=== PATIENT | female | born 1955 | race Caucasian/White ===

== ENCOUNTER 2020-10-31 19:24 | Inpatient (IN) | payer OTHER ==
[~2020-10-31] VITALS: Ht 160 cm; Wt 56.5 kg
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
--- NOTE | 2020-10-31 19:56 | NUR ---
PT TAKING MEDS: CLONAZEPAM 0.5MG TAB -VENLAFAXINE 75MG CAP.
--- NOTE | 2020-10-31 19:58 | NUR ---
PT ACTIVELY VOMMINT THE LAST 10 MINUTES ASKING "WHY DOES HER HEAD HURT SO MUCH?" HAS HAD A BIANCHI SINCE 1600.
--- NOTE | 2020-10-31 20:14 | NUR ---
PT STATES HAS A BIANCHI 10/10.
[2020-10-31] MEDS ORDERED: MORPHINE SULFATE 4 MG/ML, 1ML IVPush PRN (21:00)
[2020-10-31] MEDS ORDERED: ONDANSETRON 2MG/ML, 2ML IVPush ONE (21:00)
[2020-10-31] MEDS ORDERED: SODIUM CHLORIDE FLUSH 10ML SYR IVF ONE (21:00)
[2020-10-31] MEDS ORDERED: SODIUM CHLORIDE 0.9% 1,000ML IVBOLUS ONE (21:00)
[2020-10-31] MEDS ORDERED: ONDANSETRON 2MG/ML, 2ML ONE (21:05)
[2020-10-31] MEDS ORDERED: MORPHINE SULFATE 4 MG/ML, 1ML ONE (21:05)
--- NOTE | 2020-10-31 21:17 | NUR ---
PT MEDICATED WENT TO CT.
[2020-10-31 21:26] LABS: BASOPHILS % (AUTO) 1 % (0-1); EOSINOPHILS % (AUTO) 2 % (1-7); LYMPHOCYTES % (AUTO) 28 % (22-44); MEAN CORPUSCULAR HEMOGLOBIN 31.5 pg (27.0-34.8); MEAN CORPUSCULAR HGB CONC 33.7 g/dL (32.4-35.8); MEAN PLATELET VOLUME 10.3 fL (7.4-10.4); MONOCYTES % (AUTO) 6 % (2-9); NEUTROPHILS % (AUTO) 63 % (42-75); PLATELET COUNT 171 x10^3/uL (130-400); RED BLOOD COUNT 4.11 x10^6/uL (3.82-5.3); RED CELL DISTRIBUTION WIDTH 13.4 % (9.6-15.2)
[2020-10-31 21:27] LABS: MD NO
[2020-10-31 21:37] LABS: ALANINE AMINOTRANSFERASE 25 U/L (12-78); ALBUMIN 4.2 g/dL (3.4-5.0); ANION GAP 8 mmol/L (5-15); CALCIUM 9.7 mg/dL (8.5-10.1); CHLORIDE 107 mmol/L (98-107); CREATININE 0.76 mg/dL (0.55-1.02)
[2020-10-31 21:41] LABS: ALKALINE PHOSPHATASE 51 U/L (45-117); BILIRUBIN,TOTAL 0.5 mg/dL (0.2-1.0); TOTAL PROTEIN 6.6 g/dL (6.4-8.2); TROPONIN I < 0.015 ng/mL (0.000-0.045)
[2020-10-31 21:48] LABS: INTERNATIONAL NORMALIZED RATIO 1.09 (0.93-1.1); PROTHROMBIN TIME 11.6 Seconds (9.6-11.5)
[2020-10-31] MEDS ORDERED: CLON0.5T20 PO (21:51)
[2020-10-31] MEDS ORDERED: VENL75TA PO (21:51)
--- NOTE | 2020-10-31 22:49 | NUR ---
Assist RN: ERP at bedside for LP.
[2020-10-31 23:10] LABS: GLUCOSE, CSF 68 mg/dL (40-80); TOTAL PROTEIN,CSF 57 mg/dL (15-45)
[2020-10-31] MEDS ORDERED: POTASSIUM CHLORIDE 20 MEQ TAB.ER.PRT ONE (23:21)
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
[2020-10-31] MEDS ORDERED: POTASSIUM CHLORIDE 20 MEQ TAB.ER.PRT PO ONE (23:30)
[2020-10-31 23:34] LABS: MICROSCOPIC AUTO
[2020-11-01] MEDS ORDERED: POLYETHYLENE GLYCOL 17 GM PACKET PO PRN (00:30)
[2020-11-01] MEDS ORDERED: BISACODYL 10 MG SUPP PR PRN (00:30)
--- NOTE | 2020-11-01 00:41 | NUR ---
REPORT GIVEN TO VILMA STANLEY.
[2020-11-01 01:24] LABS: FREE T4 (FREE THYROXINE) 1.2 ng/dL (0.76-1.46)
[2020-11-01] MEDS: SODIUM CHLORIDE 0.9% 1,000 ML IV SCH ×2 (02:18→20:41)
[2020-11-01] MEDS: ACYCLOVIR 500 MG in SODIUM CHLORIDE 0.9% 100 ML IV SCH ×2 (02:18→10:45)
[2020-11-01 02:44] VITALS: BP 123/79
[2020-11-01 06:27] LABS: BASOPHILS % (AUTO) 0 % (0-1); EOSINOPHILS % (AUTO) 0 % (1-7); LYMPHOCYTES % (AUTO) 15 % (22-44); MEAN CORPUSCULAR HEMOGLOBIN 31.6 pg (27.0-34.8); MEAN PLATELET VOLUME 9.9 fL (7.4-10.4); MONOCYTES % (AUTO) 4 % (2-9); NEUTROPHILS % (AUTO) 80 % (42-75); PLATELET COUNT 158 x10^3/uL (130-400); RED BLOOD COUNT 4.15 x10^6/uL (3.82-5.3); RED CELL DISTRIBUTION WIDTH 13.6 % (9.6-15.2)
[2020-11-01 06:34] LABS: ANION GAP 7 mmol/L (5-15); CALCIUM 9.4 mg/dL (8.5-10.1); CHLORIDE 109 mmol/L (98-107); CREATININE 0.67 mg/dL (0.55-1.02)
[2020-11-01 06:39] LABS: MD NO
[2020-11-01 06:53] VITALS: BP 105/60
[2020-11-01] MEDS: VENLAFAXINE 75MG TABLET PO SCH (10:45)
[2020-11-01] MEDS: SENNA/DOCUSATE TABLET PO SCH (10:51)
[2020-11-01 12:01] VITALS: BP 106/62
[2020-11-01] MEDS ORDERED: ACETAMINOPHEN 325 MG TABLET ONE (12:15)
[2020-11-01] MEDS ORDERED: LORazepam 1MG TABLET PO ONE (13:00)
[2020-11-01] MEDS ORDERED: PROMETHAZINE 12.5 MG SUPP PR PRN (17:00)
[2020-11-01 18:31] VITALS: BP 107/60
[2020-11-02 00:06] VITALS: BP 110/73
[2020-11-02] MEDS: ACETAMINOPHEN 325 MG TABLET PO PRN ×2 (05:36→18:04)
[2020-11-02 07:14] VITALS: BP 123/82
[2020-11-02] MEDS: VENLAFAXINE 75MG TABLET PO SCH (07:53)
[2020-11-02] MEDS: SENNA/DOCUSATE TABLET PO SCH (07:53)
[2020-11-02] MEDS ORDERED: GADOTERATE 5 MMOL/10ML SYR ONE (10:27)
[2020-11-02 12:10] VITALS: BP 113/71
[2020-11-02] MEDS: KETOROLAC 30 MG/1 ML IVPush PRN (13:19)
[2020-11-02] MEDS: PROCHLORPERAZINE 5 MG/ML, 2ML IVPush PRN (13:19)
[2020-11-02] MEDS: SODIUM CHLORIDE 0.9% 1,000 ML IV SCH (15:05)
[2020-11-02] MEDS: ONDANSETRON 2MG/ML, 2ML IVPush PRN (18:04)
[2020-11-02 19:26] VITALS: BP 118/78
[2020-11-03 01:03] VITALS: BP 115/76
[2020-11-03] MEDS: PROCHLORPERAZINE 5 MG/ML, 2ML IVPush PRN ×2 (03:16→14:23)
[2020-11-03] MEDS: SODIUM CHLORIDE 0.9% 1,000 ML IV SCH ×2 (03:16→17:19)
[2020-11-03] MEDS: KETOROLAC 30 MG/1 ML IVPush PRN ×2 (03:16→14:23)
[2020-11-03 06:52] VITALS: BP 132/80
[2020-11-03] MEDS ORDERED: VENLAFAXINE 37.5MG TABLET PO ONE (08:00)
[2020-11-03] MEDS ORDERED: VENLAFAXINE 75MG TABLET ONE (09:37)
[2020-11-03 12:03] VITALS: BP 134/77
[2020-11-03] MEDS: SENNA/DOCUSATE TABLET PO SCH (16:48)
[2020-11-03] MEDS: ACETAMINOPHEN 325 MG TABLET PO PRN (19:25)
[2020-11-03 20:14] VITALS: BP 132/76
[2020-11-04 00:02] VITALS: BP 123/69
[2020-11-04] MEDS: SODIUM CHLORIDE 0.9% 1,000 ML IV SCH (06:17)
[2020-11-04] MEDS: KETOROLAC 30 MG/1 ML IVPush PRN ×2 (06:30→19:11)
[2020-11-04] MEDS: PROCHLORPERAZINE 5 MG/ML, 2ML IVPush PRN (06:31)
[2020-11-04 06:57] VITALS: BP 122/71
[2020-11-04] MEDS: ACETAMINOPHEN 325 MG TABLET PO PRN ×2 (09:44→17:37)
[2020-11-04] MEDS: SENNA/DOCUSATE TABLET PO SCH (09:44)
[2020-11-04] MEDS: VENLAFAXINE 37.5MG TABLET PO SCH (09:45)
[2020-11-04] MEDS: ONDANSETRON 2MG/ML, 2ML IVPush PRN (10:35)
[2020-11-04] MEDS ORDERED: VALPROATE SODIUM 500 MG in DEXTROSE 5% 100 ML IV ONE (11:00)
[2020-11-04] MEDS ORDERED: VENL37.57 PO (11:51)
[2020-11-04 12:03] VITALS: BP_SYST 115; BP_SYST 120; BP_SYST 147; BP_DIAS 51; BP_DIAS 71; BP_DIAS 81
[2020-11-04] MEDS: D5%-0.9% NACL 1,000 ML IV SCH ×2 (13:57→22:37)
[2020-11-04] MEDS ORDERED: ONDANSETRON 2MG/ML, 2ML IVPush PRN (14:40)
[2020-11-04] MEDS: VALPROATE SODIUM 500 MG in DEXTROSE 5% 100 ML IV SCH ×2 (17:29→23:20)
[2020-11-04 19:30] VITALS: BP 156/84
[2020-11-05] VITALS (7 sets, daily range): BP systolic 111–146; BP diastolic 69–83
[2020-11-05] MEDS: VALPROATE SODIUM 500 MG in DEXTROSE 5% 100 ML IV SCH ×4 (04:27→23:05)
[2020-11-05] MEDS: SENNA/DOCUSATE TABLET PO SCH (09:48)
[2020-11-05] MEDS: VENLAFAXINE 37.5MG TABLET PO SCH (09:48)
[2020-11-05] MEDS: D5%-0.9% NACL 1,000 ML IV SCH ×2 (12:01→23:08)
[2020-11-05] MEDS ORDERED: FREMANEZUMAB SQ ONE (12:30)
[2020-11-06 00:42] VITALS: BP 132/86
[2020-11-06] MEDS: VALPROATE SODIUM 500 MG in DEXTROSE 5% 100 ML IV SCH ×4 (04:38→22:33)
[2020-11-06 06:35] VITALS: BP 119/77
[2020-11-06 07:03] LABS: BASOPHILS % (AUTO) 0 % (0-1); EOSINOPHILS % (AUTO) 3 % (1-7); LYMPHOCYTES % (AUTO) 21 % (22-44); MEAN CORPUSCULAR HEMOGLOBIN 31.4 pg (27.0-34.8); MEAN CORPUSCULAR HGB CONC 34.3 g/dL (32.4-35.8); MEAN PLATELET VOLUME 9.5 fL (7.4-10.4); MONOCYTES % (AUTO) 8 % (2-9); NEUTROPHILS % (AUTO) 69 % (42-75); PLATELET COUNT 142 x10^3/uL (130-400); RED BLOOD COUNT 3.92 x10^6/uL (3.82-5.3); RED CELL DISTRIBUTION WIDTH 13.2 % (9.6-15.2)
[2020-11-06 07:09] LABS: ANION GAP 6 mmol/L (5-15); CALCIUM 9.1 mg/dL (8.5-10.1); CHLORIDE 108 mmol/L (98-107); CREATININE 0.46 mg/dL (0.55-1.02); MD NO
[2020-11-06] MEDS: SENNA/DOCUSATE TABLET PO SCH (08:05)
[2020-11-06] MEDS: VENLAFAXINE 37.5MG TABLET PO SCH (09:47)
[2020-11-06] MEDS ORDERED: POTASSIUM CHLORIDE 20 MEQ TAB.ER.PRT PO SCH (10:30)
[2020-11-06] MEDS: POTASSIUM CHLORIDE 20 MEQ PACKET PO SCH ×2 (11:10→20:09)
[2020-11-06] MEDS: D5%-0.9% NACL 1,000 ML IV SCH (14:21)
[2020-11-06 14:39] VITALS: BP_SYST 109; BP_SYST 115; BP_SYST 99; BP_DIAS 74; BP_DIAS 78; BP_DIAS 81
[2020-11-06] MEDS: D5%-0.45NACL+KCL 20MEQ 1,000 ML IV SCH (16:31)
[2020-11-06 20:00] VITALS: BP_SYST 132; BP_SYST 143; BP_SYST 144; BP_DIAS 80; BP_DIAS 85; BP_DIAS 89
[2020-11-07 01:13] VITALS: BP 148/82
[2020-11-07] MEDS: VALPROATE SODIUM 500 MG in DEXTROSE 5% 100 ML IV SCH ×2 (04:54→12:40)
[2020-11-07 06:10] LABS: ANION GAP 5 mmol/L (5-15); CALCIUM 9.3 mg/dL (8.5-10.1); CHLORIDE 107 mmol/L (98-107); CREATININE 0.46 mg/dL (0.55-1.02)
[2020-11-07] MEDS: D5%-0.45NACL+KCL 20MEQ 1,000 ML IV SCH ×2 (06:21→16:05)
[2020-11-07 06:43] VITALS: BP 124/80
[2020-11-07] MEDS ORDERED: POTASSIUM CHLORIDE 40 MEQ in SODIUM CHLORIDE 0.9% 500 ML IV ONE (07:00)
[2020-11-07] MEDS: VENLAFAXINE 37.5MG TABLET PO SCH (10:05)
[2020-11-07] MEDS: POTASSIUM CHLORIDE 20 MEQ PACKET PO SCH ×2 (10:06→20:11)
[2020-11-07] MEDS: SENNA/DOCUSATE TABLET PO SCH (10:06)
[2020-11-07 12:14] VITALS: BP 138/85
[2020-11-07] MEDS: DIVALPROEX 500 MG TABLET.DR PO SCH (20:10)
[2020-11-07 20:45] VITALS: BP 143/81
[2020-11-07] MEDS ORDERED: VALPROATE SODIUM 500 MG in DEXTROSE 5% 100 ML IV SCH (21:00)
[2020-11-08 01:52] VITALS: BP 140/82
[2020-11-08 06:32] LABS: CHLORIDE 107 mmol/L (98-107)
[2020-11-08 06:51] LABS: ANION GAP 7 mmol/L (5-15); CREATININE 0.46 mg/dL (0.55-1.02)
[2020-11-08 07:34] VITALS: BP 143/81
[2020-11-08] MEDS: SENNA/DOCUSATE TABLET PO SCH (09:16)
[2020-11-08] MEDS: VENLAFAXINE 37.5MG TABLET PO SCH (09:19)
[2020-11-08] MEDS: DIVALPROEX 500 MG TABLET.DR PO SCH ×2 (09:21→21:02)
[2020-11-08 11:41] VITALS: BP 148/83
[2020-11-08 19:37] VITALS: BP 124/85
[2020-11-09 00:18] VITALS: BP 121/80
[2020-11-09 07:12] VITALS: BP 133/81
[2020-11-09] MEDS: SENNA/DOCUSATE TABLET PO SCH (09:00)
[2020-11-09] MEDS: ACETAMINOPHEN 325 MG TABLET PO PRN (09:47)
[2020-11-09] MEDS: VENLAFAXINE 37.5MG TABLET PO SCH (09:47)
[2020-11-09] MEDS: DIVALPROEX 500 MG TABLET.DR PO SCH ×2 (09:47→20:20)
[2020-11-09 14:16] VITALS: BP 130/82
[2020-11-09 19:53] VITALS: BP 131/85
[2020-11-10 01:37] VITALS: BP 112/77
[2020-11-10 05:58] LABS: BASOPHILS % (AUTO) 0 % (0-1); EOSINOPHILS % (AUTO) 3 % (1-7); LYMPHOCYTES % (AUTO) 19 % (22-44); MD NO; MEAN CORPUSCULAR HEMOGLOBIN 31.7 pg (27.0-34.8); MEAN CORPUSCULAR HGB CONC 34.8 g/dL (32.4-35.8); MEAN PLATELET VOLUME 10.1 fL (7.4-10.4); MONOCYTES % (AUTO) 9 % (2-9); NEUTROPHILS % (AUTO) 69 % (42-75); PLATELET COUNT 126 x10^3/uL (130-400); RED CELL DISTRIBUTION WIDTH 13.5 % (9.6-15.2)
[2020-11-10 06:05] LABS: CHLORIDE 101 mmol/L (98-107)
[2020-11-10 06:11] LABS: ALANINE AMINOTRANSFERASE 11 U/L (12-78); ALBUMIN 3.1 g/dL (3.4-5.0); ALKALINE PHOSPHATASE 48 U/L (45-117); ANION GAP 5 mmol/L (5-15); BILIRUBIN,TOTAL 0.5 mg/dL (0.2-1.0); CALCIUM 9.4 mg/dL (8.5-10.1); CREATININE 0.45 mg/dL (0.55-1.02); TOTAL PROTEIN 5.8 g/dL (6.4-8.2)
[2020-11-10 07:44] VITALS: BP 107/72
[2020-11-10] MEDS: SENNA/DOCUSATE TABLET PO SCH (08:14)
[2020-11-10] MEDS: ACETAMINOPHEN 325 MG TABLET PO PRN ×2 (08:14→21:11)
[2020-11-10] MEDS: DIVALPROEX 500 MG TABLET.DR PO SCH ×2 (08:14→21:11)
[2020-11-10 13:20] VITALS: BP 113/81
[2020-11-10 19:30] VITALS: BP 121/70
[2020-11-11 00:04] VITALS: BP 121/75
[2020-11-11 06:47] VITALS: BP 127/76
[2020-11-11] MEDS: SENNA/DOCUSATE TABLET PO SCH (09:00)
[2020-11-11] MEDS: DIVALPROEX 500 MG TABLET.DR PO SCH ×2 (09:35→21:17)
[2020-11-11 13:57] VITALS: BP 143/83
[2020-11-11 19:58] VITALS: BP 136/87
[2020-11-12 02:08] VITALS: BP 121/73
[2020-11-12 05:36] LABS: CALCIUM 9.7 mg/dL (8.5-10.1); CHLORIDE 102 mmol/L (98-107)
[2020-11-12 05:44] LABS: ALANINE AMINOTRANSFERASE 11 U/L (12-78); ALKALINE PHOSPHATASE 48 U/L (45-117); ANION GAP 5 mmol/L (5-15); BILIRUBIN,TOTAL 0.4 mg/dL (0.2-1.0); CREATININE 0.53 mg/dL (0.55-1.02); TOTAL PROTEIN 6.3 g/dL (6.4-8.2)
[2020-11-12 07:00] VITALS: BP 128/82
[2020-11-12 08:01] LABS: BASOPHILS % (AUTO) 0 % (0-1); EOSINOPHILS % (AUTO) 2 % (1-7); LYMPHOCYTES % (AUTO) 19 % (22-44); MEAN CORPUSCULAR HEMOGLOBIN 31.2 pg (27.0-34.8); MEAN CORPUSCULAR HGB CONC 33.8 g/dL (32.4-35.8); MEAN PLATELET VOLUME 9.3 fL (7.4-10.4); MONOCYTES % (AUTO) 12 % (2-9); NEUTROPHILS % (AUTO) 67 % (42-75); PLATELET COUNT 128 x10^3/uL (130-400); RED BLOOD COUNT 4.55 x10^6/uL (3.82-5.3); RED CELL DISTRIBUTION WIDTH 13.5 % (9.6-15.2)
[2020-11-12 08:02] LABS: MD NO
[2020-11-12] MEDS: ACETAMINOPHEN 325 MG TABLET PO PRN (08:46)
[2020-11-12] MEDS: DIVALPROEX 500 MG TABLET.DR PO SCH (08:46)
[2020-11-12] MEDS: SENNA/DOCUSATE TABLET PO SCH (08:46)
[2020-11-12 13:06] VITALS: BP 121/76
== END 2020-11-12 18:30 | disposition home or self-care (01) | DRG 74 ==
LOC: ED 21:28 → EDIP 23:18 → 4EST 11-01 01:00
PROVIDERS: ADMIT Family Medicine; ATTEND Family Medicine
PROC: 0T9B70Z Drainage of Bladder with Drainage Device, Via Natural or Artificial Opening (ICD-10-PCS; principal; 2020-10-31)
PROC: 009U3ZX Drainage of Spinal Canal, Percutaneous Approach, Diagnostic (ICD-10-PCS; 2020-10-31)
DX: G90.9 Disorder of the autonomic nervous system, unspecified (principal); G93.40 Encephalopathy, unspecified; E86.0 Dehydration; E87.6 Hypokalemia; G43.A0 Cyclical vomiting, in migraine, not intractable; I95.1 Orthostatic hypotension; Z88.8 Allergy status to other drugs, medicaments and biological substances; Z79.899 Other long term (current) drug therapy; Z80.1 Family history of malignant neoplasm of trachea, bronchus and lung; Z81.8 Family history of other mental and behavioral disorders; Z82.49 Family history of ischemic heart disease and other diseases of the circulatory system; Z87.891 Personal history of nicotine dependence; Z90.710 Acquired absence of both cervix and uterus
CPT/HCPCS: 36415; 62270; 87806; 89051; 96374; 96375; 99291; J7042; 70450; 70553; 71045; 80048; 80053; 81001; 82945; 83605; 83735; 84157; 84439; 84443; 84484; 85025; 85610; 86255; 86803; 87040; 87070; 87205; 87252; 87340; 93005; 93306; 95819; G0378; J0133; J1885; J2405; J3480; A9575; G0475; J0780; J2270; J7030; J7040